=== PATIENT | female | born 1995 | race Caucasian/White ===

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

== ENCOUNTER 2017-03-09 20:28 | Inpatient (IN) | payer OTHER ==
[~2017-03-09] VITALS: Ht 149.9 cm; Wt 74.0 kg
[2017-03-09] VITALS (11 sets, daily range): BP systolic 109–122; BP diastolic 65–74; PULSE 61–79; RESP 18; TEMP 98.3–98.7
[2017-03-09] MEDS ORDERED: LACTATED RINGER'S 1000 ML BOLUS IV PRN (21:15)
[2017-03-09] MEDS ORDERED: NS 1000 ML IV PRN (21:15)
[2017-03-09] MEDS ORDERED: LACTATED RINGER'S 1000 ML IV SCH (21:15)
[2017-03-09] MEDS ORDERED: CITRIC ACID-SODIUM CITRATE LIQ 30 ML UDC PO SCH (21:15)
[2017-03-09] MEDS ORDERED: LIDOCAINE HCL 1% 50 ML VIAL I-DERMAL PRN (21:15)
[2017-03-09] MEDS ORDERED: NS 500 ML BOLUS IV PRN (21:15)
[2017-03-09] MEDS ORDERED: ZOFR4TAB3 SL (21:32)
[2017-03-09 21:37] LABS: AUTOMATED NEUTROPHIL # 6.5 TH/MM3 (1.8-7.7); BASOPHIL % 0.4 % (0.0-2.0); EOSINOPHIL # 0.1 TH/MM3 (0-0.4); EOSINOPHIL % 0.8 % (0.0-4.0); HEMATOCRIT 31.9 % (35.0-46.0); HEMO FLAGS DIFF FINAL; LYMPH % 19.7 % (9.0-44.0); LYMPHOCYTE # 1.8 TH/MM3 (1.0-4.8); MEAN CELL VOLUME 76.5 FL (80.0-100.0); MEAN CORPUSCULAR HEMOGLOBIN 24.7 PG (27.0-34.0); MEAN CORPUSCULAR HGB CONC 32.3 % (32.0-36.0); MONO % 7.2 % (0.0-8.0); NEUT % 71.9 % (16.0-70.0); PLATELET COUNT 216 TH/MM3 (150-450); RED BLOOD COUNT 4.17 MIL/MM3 (4.00-5.30); RED CELL DISTRIBUTION WIDTH 15.9 % (11.6-17.2); WHITE BLOOD COUNT 9.1 TH/MM3 (4.0-11.0)
[2017-03-09] MEDS ORDERED: DINOPROSTONE 10 MG INSERT - REMOVE AT 0600 VAGINAL ONE (22:00)
[2017-03-09] MEDS ORDERED: OXYTOCIN 30 UNITS 500ML PREMIX IV ONE (22:00)
[2017-03-09] MEDS ORDERED: LACTATED RINGER'S 1000 ML INJ 1,000 ML IV SCH (22:00)
[2017-03-09] MEDS ORDERED: LIDOCAINE HCL 1% 50 ML VIAL INFIL PRN (22:00)
[2017-03-09] MEDS ORDERED: MINERAL OIL 10 ML VIAL TOPICAL PRN (22:00)
[2017-03-09 22:07] LABS: BLOOD, URINE NEG (NEG); COMMENT (UR) CULT NOT INDICATED; CULTURE IF INDICATED CULT NOT INDICATED; GLUCOSE,URINE NEG (NEG); KETONE, URINE NEG (NEG); MUCUS URINE FEW /lpf (OCC); NITRITE,URINE NEG (NEG); PH, URINE 6.5 (5.0-8.5); SQUAMOUS EPITHELIAL CELL URINE 2 /hpf (0-5); URINE COLOR YELLOW (YELLW/STRAW)
[2017-03-10] VITALS (116 sets, daily range): BP systolic 81–153; BP diastolic 48–99; PULSE 61–145; RESP 16–20; TEMP 98.1–100.3
[2017-03-10] MEDS ORDERED: OXYTOCIN 30 UNITS/NS 500ML PREMIX IV SCH (04:30)
[2017-03-10] MEDS ORDERED: ePHEDrine/NS 25 MG/5 ML SYR ONE (13:12)
[2017-03-10] MEDS ORDERED: fentaNYL 2MCG-BUPIV 0.125% INJ 100 ML ONE (13:12)
[2017-03-10] MEDS ORDERED: ePHEDrine/NS 25 MG/5 ML SYR IV PRN (15:15)
[2017-03-10] MEDS ORDERED: NO SYSTEM NARCOTICS PRN (15:15)
[2017-03-10] MEDS ORDERED: DO NOT ADMINISTER ANTICOAGULANTS PRN (15:15)
[2017-03-10] MEDS ORDERED: fentaNYL 2MCG-BUPIV 0.125% 100 ML EPIDURAL SCH (15:15)
[2017-03-10] MEDS ORDERED: MEASLES, MUMPS, RUBELLA VACCINE 0.5 ML VIAL SQ ONE (16:00)
[2017-03-10] MEDS ORDERED: DIPHTH/TETANUS/ACEL PERTUSSIS (BOOSTER) 0.5 ML VIAL/PFS IM ONE (16:00)
--- NOTE | 2017-03-10 22:24 | PD.OB.DELI ---
Weeks gestation: 40 Gest age assessed date: Mar 10, 2017 Gest age assessed time: 09:00 Pt started active labor?: No Active labor start date: Mar 10, 2017 Active labor start time: 09:00 Medical induction of labor?: Yes Medical induction start date: Mar 09, 2017 Medical induction start time: 20:00 Artificial rupture of membrane: Yes Artificial ROM date: Mar 10, 2017 Artifical ROM time: 12:00 Anesthesia: Epidural Episiotomy: Midline Vaginal Delivery: Normal Presentation: Occiput anterior Nuchal Cord: x1 Delayed cord clamping (45 sec): No Shoulder Dystocia: Suprapubic pressure given, Uli maneuver done, Wood's screw maneuver done Infant: Female Delivery date: Mar 10, 2017 Delivery time: 21:40 One Minute : 7 Five Minute : 9 Weight: 6-10 Placenta: Spontaneous delivery, Intact, 3 vessel cord Laceration: Episiotomy Repair: Chromic interrupted, Chromic running Estimated blood loss: 300 Additional Information bilateral sulcus tears Kimberly Dominique MD Mar 10, 2017 22:24
[2017-03-10] MEDS ORDERED: ZOLPIDEM TARTRATE 5 MG TAB PO PRN (22:30)
[2017-03-10] MEDS ORDERED: DOCUSATE SODIUM 50 MG/SENNA 8.6 MG TAB PO PRN (22:30)
[2017-03-10] MEDS ORDERED: WITCH HAZEL 50%/GLYCERIN 12.5% 40 PAD JAR TOPICAL PRN (22:30)
[2017-03-10] MEDS ORDERED: ALUMINUM/MAGNESIUM/SIMETH 30 ML CUP PO PRN (22:30)
[2017-03-10] MEDS ORDERED: OXYTOCIN 30 UNITS-500ML PREMIX 500 ML IV SCH (22:30)
[2017-03-10] MEDS ORDERED: BENZOCAINE 20% TOPICAL SPRAY 60 ML CAN TOPICAL PRN (22:30)
[2017-03-10] MEDS ORDERED: ACETAMINOPHEN 325 MG TAB PO PRN (22:30)
[2017-03-10] MEDS ORDERED: ONDANSETRON ODT 4 MG TAB PO PRN (22:30)
[2017-03-10] MEDS ORDERED: SODIUM CHLORIDE 0.9% FLUSH 10 ML FLUSH IV FLUSH PRN (22:30)
[2017-03-10] MEDS: IBUPROFEN 600 MG TAB PO PRN (23:33)
[2017-03-11] VITALS (11 sets, daily range): BP systolic 99–137; BP diastolic 50–77; PULSE 55–115; RESP 16–20; TEMP 98–100.3
[2017-03-11] MEDS: IBUPROFEN 600 MG TAB PO PRN ×3 (06:00→20:14)
[2017-03-11] MEDS: oxyCODONE/ACETAMINOPHEN 5 MG/325 MG TAB PO PRN ×3 (06:01→20:14)
--- NOTE | 2017-03-11 08:17 | HHI.OB ---
Subjective Post Day: 1 Remarks Pt doing well, minimal bleeding, pain controlled Objective Vitals/I&O Vital Signs Date Time Temp Pulse Resp B/P (MAP) Pulse Ox O2 Delivery O2 Flow Rate FiO2 03/11/17 05:30 105 16 113/65 (81) 03/11/17 05:30 100.3 03/11/17 01:30 98.8 115 16 109/62 (78) 03/11/17 01:00 98 118/61 (80) 03/11/17 00:29 98.0 03/11/17 00:05 105 137/77 (97) 03/11/17 00:00 16 03/10/17 23:45 89 135/69 (91) 03/10/17 23:45 16 03/10/17 23:30 16 03/10/17 23:30 131 124/52 (76) 03/10/17 23:15 100.3 18 03/10/17 23:15 110 137/74 (95) 03/10/17 23:00 121 148/70 (96) 03/10/17 23:00 18 03/10/17 22:56 120 143/82 (102) 03/10/17 22:45 18 03/10/17 22:42 125 150/62 (91) 03/10/17 22:37 128 153/87 (109) 03/10/17 19:30 91 108/67 (81) 03/10/17 19:24 91 112/63 (79) 03/10/17 19:07 98.7 18 03/10/17 19:06 92 109/57 (74) 03/10/17 18:43 20 03/10/17 18:31 104 96/48 (64) 03/10/17 18:26 92 104/51 (68) 03/10/17 18:25 77 114/48 (70) 03/10/17 18:22 109 81/49 (60) 03/10/17 18:17 98 123/71 (88) 03/10/17 17:57 20 03/10/17 17:45 20 03/10/17 17:30 126/70 (88) 03/10/17 17:00 87 115/77 (90) 03/10/17 16:31 84 115/62 (79) 03/10/17 16:30 97 03/10/17 16:20 98.5 03/10/17 16:15 90 03/10/17 16:10 67 03/10/17 16:05 65 03/10/17 16:00 64 03/10/17 16:00 67 97/55 (69) 03/10/17 15:47 18 03/10/17 15:46 69 97/62 (74) 03/10/17 15:45 70 03/10/17 15:40 69 03/10/17 15:35 75 03/10/17 15:30 67 97/54 (68) 03/10/17 15:30 63 03/10/17 15:25 74 03/10/17 15:20 78 03/10/17 15:15 68 03/10/17 15:15 75 93/52 (66) 03/10/17 15:10 98 03/10/17 15:05 88 03/10/17 15:00 95 03/10/17 15:00 82 109/62 (78) 03/10/17 14:54 20 03/10/17 14:50 75 03/10/17 14:46 70 110/66 (81) 03/10/17 14:45 75 03/10/17 14:40 75 03/10/17 14:35 67 03/10/17 14:31 77 109/58 (75) 03/10/17 14:30 72 03/10/17 14:25 67 03/10/17 14:20 64 03/10/17 14:15 69 03/10/17 14:15 64 109/63 (78) 03/10/17 14:04 18 03/10/17 14:00 71 03/10/17 14:00 67 103/58 (73) 03/10/17 13:56 20 03/10/17 13:55 76 03/10/17 13:55 69 99/55 (70) 03/10/17 13:51 70 03/10/17 13:50 71 03/10/17 13:45 81 105/77 (86) 03/10/17 13:45 87 03/10/17 13:40 85 105/56 (72) 03/10/17 13:40 75 03/10/17 13:39 20 03/10/17 13:35 82 133/80 (97) 03/10/17 13:30 78 128/76 (93) 03/10/17 13:30 82 03/10/17 13:26 88 134/71 (92) 03/10/17 13:25 79 03/10/17 13:20 145 03/10/17 13:15 71 03/10/17 13:15 71 131/76 (94) 03/10/17 13:10 73 03/10/17 13:05 72 03/10/17 13:01 64 119/64 (82) 03/10/17 13:00 64 03/10/17 12:40 79 03/10/17 12:35 78 03/10/17 12:31 78 101/72 (82) 03/10/17 12:30 77 03/10/17 12:25 110 03/10/17 12:20 71 03/10/17 12:16 115 129/50 (76) 03/10/17 12:15 88 03/10/17 12:07 20 03/10/17 12:05 75 03/10/17 12:01 73 126/99 (108) 03/10/17 12:00 70 03/10/17 11:55 76 03/10/17 11:46 94 102/80 (87) 03/10/17 11:45 72 03/10/17 11:07 20 03/10/17 11:07 98.8 03/10/17 11:05 78 03/10/17 11:01 72 105/67 (80) 03/10/17 11:00 77 03/10/17 10:40 85 03/10/17 10:35 83 03/10/17 10:30 72 104/88 (93) 03/10/17 10:30 65 03/10/17 10:10 80 114/74 (87) 03/10/17 10:10 68 03/10/17 10:05 101 03/10/17 09:55 62 03/10/17 09:50 73 03/10/17 09:45 63 123/73 (90) 03/10/17 09:45 64 03/10/17 09:40 71 03/10/17 09:35 67 03/10/17 09:31 62 109/48 (68) 8/29/17 09:30 20 03/10/17 09:30 71 03/10/17 09:29 63 119/73 (88) 03/10/17 09:25 70 03/10/17 09:20 68 03/10/17 09:15 61 Objective Remarks GENERAL: Well-nourished, well-developed patient. CARDIOVASCULAR: Regular rate and rhythm without murmurs, gallops, or rubs. RESPIRATORY: Breath sounds equal bilaterally. No accessory muscle use. ABDOMEN/GI: Abdomen soft, non-tender. Fundus: Firm, non-tender at umbilicus. GENITOURINARY: Light to moderate bleeding. EXTREMITIES: No cyanosis or edema, non-tender, without signs of DVT. Medications and IVs Current Medications Medications (Trade) Dose Ordered Sig/Peter Route Start Time Stop Time Status Last Admin (NS Flush) 2 ml BID IV FLUSH 03/11/17 09:00 (NS Flush) 2 ml UNSCH PRN IV FLUSH 03/10/17 22:30 (Tylenol) 650 mg Q4H PRN PO 03/10/17 22:30 (Motrin) 600 mg Q6H PRN PO 03/10/17 22:30 03/11/17 06:00 (Percocet 5-325 Mg) 1 tab Q4H PRN PO 03/10/17 22:30 (Percocet 5-325 Mg) 2 tab Q4H PRN PO 03/10/17 22:30 03/11/17 06:01 (Americaine 20% Top Spr) 1 spray Q4H PRN TOPICAL 03/10/17 22:30 (Tucks Pads) 1 applic QID PRN TOPICAL 03/10/17 22:30 (Radha-Colace) 2 tab Q12H PRN PO 03/10/17 22:30 (Ambien) 5 mg HS PRN PO 03/10/17 22:30 (Mag-Al Plus Susp Liq) 15 ml Q8H PRN PO 03/10/17 22:30 (Zofran Odt) 4 mg Q6H PRN PO 03/10/17 22:30 Assessment/Plan Problem List: (1) Labor without complication ICD Codes: O80 - Encounter for full-term uncomplicated delivery Status: Acute Assessment and Plan PPD # 1 s/p doing well 1. routine care Kimberly Dominique MD Mar 11, 2017 08:17
[2017-03-11] MEDS ORDERED: SODIUM CHLORIDE 0.9% FLUSH 10 ML FLUSH IV FLUSH SCH (09:00)
[2017-03-12] MEDS: IBUPROFEN 600 MG TAB PO PRN ×2 (05:41→12:41)
[2017-03-12] MEDS: oxyCODONE/ACETAMINOPHEN 5 MG/325 MG TAB PO PRN ×2 (05:42→12:41)
[2017-03-12 08:20] VITALS: BP 96/63; PULSE 17; PULSE 87; RESP 17; TEMP 98
[2017-03-12] MEDS ORDERED: OXYC1TAB63 PO (13:25)
--- NOTE | 2017-03-12 13:26 | HHI.DCPOC ---
Discharge Care Plan Your Health Problems Are: Vaginal delivery Report Symptoms to Your Doctor -Temperature above 100.5 degrees -Redness, of incision or excessive or foul smelling drainage -Unusual pain or calf pain -Increased vaginal bleeding -Painful or difficulty urinating -Feelings of extreme sadness or anxiety after 2 weeks Goals to Promote Your Health * To prevent worsening of your condition and complications * To maintain your health at the optimal level Directions to Meet Your Goals Take your medications as prescribed Follow your dietary instruction Follow activity as directed Ensure plenty of rest for recovery Drink fluids for hydration Keep your appointments as scheduled Take your immunizations and boosters as scheduled If your symptoms worsen call your PCP, if no PCP go to Urgent Care Center or Emergency Room Smoking is Dangerous to Your Health. Avoid second hand smoke Call the 24-hour crisis hotline for domestic abuse at Kimberly Dominique MD Mar 12, 2017 13:26
--- NOTE | 2017-03-12 13:28 | HHI.DS ---
Admission Date Mar 09, 2017 at 20:28 Discharge Date: Mar 12, 2017 Admitting Diagnosis IUP at 40 wks 3 dys Diagnosis: Delivery Date: Mar 10, 2017 Vaginal Delivery: Normal : Female Pt Condition on Discharge: Good Discharge Disposition: Discharge Home Discharge Instructions Diet Instructions: As Tolerated, No Restrictions Activities You Can Perform: Pelvic Rest Kimberly Dominique MD Mar 12, 2017 13:28
== END 2017-03-12 14:27 | disposition home or self-care (01) | DRG 775 ==
LOC: H2EA 20:28 → H1EA 03-11 01:13
PROVIDERS: ADMIT Obstetrics & Gynecology; ATTEND Obstetrics & Gynecology
PROC: 10907ZC Drainage of Amniotic Fluid, Therapeutic from Products of Conception, Via Natural or Artificial Opening (ICD-10-PCS; 2017-03-09)
PROC: 10E0XZZ Delivery of Products of Conception, External Approach (ICD-10-PCS; principal; 2017-03-10)
PROC: 0W8NXZZ Division of Female Perineum, External Approach (ICD-10-PCS; 2017-03-10)
DX: O69.81X0 Labor and delivery complicated by cord around neck, without compression, not applicable or unspecified (principal); O66.0 Obstructed labor due to shoulder dystocia; Z3A.40 40 weeks gestation of pregnancy; Z37.0 Single live birth
CPT/HCPCS: 59025; 81001; 85025; 86900; 86901; 90715; J2590; J3010; J7120